=== PATIENT | male | born 1990 | race Caucasian/White ===

== ENCOUNTER 2020-05-19 00:25 | Inpatient (IN) | payer BC, MEDICAID ==
[~2020-05-19] VITALS: Ht 190.5 cm; Wt 124.7 kg
[2020-05-19] VITALS (569 sets, daily range): BP systolic 108–153; BP diastolic 62–106; PULSE 114–139; TEMP 98.9–99.6; O2SAT 79–100
[~2020-05-19 00:25] MED LIST: NAPROSYN500 MG PO; NORCO 325 MG-51 TAB PO; PREDNISONE20 MG PO; ZANTAC 150MG T150 MG PO
[2020-05-19 01:18] LABS: HEMATOCRIT 47.8 % (42.0-52.0); HEMOGLOBIN 16.3 g/dl (13.5-18.0); MEAN CELL VOLUME 89 fl (80.0-100.0); MEAN CORPUSCULAR HEMOGLOBIN 30 pg (27.0-31.0); MEAN CORPUSCULAR HGB CONC 34 g/dl (33.0-37.0); MEAN PLATELET VOLUME 10.6 fl (7.4-10.4); RED BLOOD COUNT 5.39 M/mm3 (4.20-5.60); REDCELL DISTRIBUTION WIDTH-CV 14.1 % (11.5-14.5)
[2020-05-19 01:19] LABS: PLATELET COUNT 44 K/mm3 (130-400)
[2020-05-19 01:43] LABS: ALANINE AMINOTRANSFERASE 333 U/L (4-49); ALBUMIN 4.1 gm/dL (3.5-5.0); ALKALINE PHOSPHATASE 121 U/L (50-136); ANION GAP 27 mmol/L (7-16); AST,SGOT 727 U/L (15-37); BILIRUBIN,TOTAL 1.5 mg/dL (0.0-1.0); BLOOD UREA NITROGEN 6 mg/dL (9-20); CALCIUM 8.4 mg/dL (8.4-10.2); CARBON DIOXIDE 15 mmol/L (22-30); CHLORIDE 97 mmol/L (98-107); CREATININE, serum 0.69 (0.66-1.25); GLUCOSE 76 mg/dL (74-106); MAGNESIUM 1.9 mg/dL (1.6-2.3); POTASSIUM 3.6 mmol/L (3.4-5.0); SODIUM 139 mmol/L (137-145); TOTAL PROTEIN 7.2 gm/dL (6.4-8.2)
[2020-05-19 01:44] LABS: C-REACTIVE PROTEIN < 0.5 mg/dL (0.0-0.9)
[2020-05-19 02:01] LABS: COLLECTION METHOD CLEAN CATCH
[2020-05-19 02:10] LABS: MUCOUS Present /lpf; PH 5 (5-8); SQUAMOUS EPITHELIAL 0-2 /hpf; URINE APPEARANCE Clear; URINE BACTERIA None Seen /hpf; URINE BILIRUBIN Negative (NEGATIVE); URINE BLOOD 2+ (NEGATIVE); URINE COLOR Amber; URINE GLUCOSE Negative (NEGATIVE); URINE KETONE 2+ (NEGATIVE); URINE LEUKOCYTE ESTERASE Negative (NEGATIVE); URINE NITRATE Negative (NEGATIVE); URINE PROTEIN(semi-quant) 3+ (NEGATIVE); URINE RBC 0-2 /hpf; URINE UROBILINOGEN >=4.0 mg/dL (NEGATIVE)
[2020-05-19 02:12] LABS: BAND 22 % (0-10); EOSINOPHIL 1 % (0-4); LYMPHOCYTE 19 % (20.0-51.0); METAMYELOCYTE 2 % (0-0); NEUTROPHILS 52 % (42.0-75.2)
[2020-05-19 02:13] LABS: ANISOCYTOSIS 1+; PLATELET ESTIMATE DECREASED (NORMAL)
[2020-05-19 02:14] LABS: TEAR DROP CELLS 1+
[2020-05-19] MEDS ORDERED: LYRICA 100MG C100 M1 PO (02:39)
[2020-05-19] MEDS ORDERED: LIORESAL 1010 MG/TAB PO (02:40)
[2020-05-19 03:01] LABS: INR 0.9 (0.8-3.0); PROTHROMBIN TIME 10.3 SECONDS (9.7-12.8)
[2020-05-19 03:48] LABS: ALCOHOL(ethanol),MEDICAL 280 mg/dL; LIPASE 953 U/L (23-300); PHOSPHOROUS 3.4 mg/dL (2.5-4.5)
[2020-05-19 03:50] LABS: ACETAMINOPHEN < 10 ug/mL (10-30); SALICYLATE < 1.0 mg/dL
[2020-05-19 05:45] LABS: HEMOGLOBIN 15.2 g/dl (13.5-18.0); MEAN CELL VOLUME 89 fl (80.0-100.0); MEAN CORPUSCULAR HEMOGLOBIN 31 pg (27.0-31.0); MEAN CORPUSCULAR HGB CONC 35 g/dl (33.0-37.0); MEAN PLATELET VOLUME 10.7 fl (7.4-10.4); RED BLOOD COUNT 4.92 M/mm3 (4.20-5.60); REDCELL DISTRIBUTION WIDTH-CV 14.2 % (11.5-14.5)
[2020-05-19 05:55] LABS: TRICYCLIC ANTIDEPRESS URINE NEGATIVE
[2020-05-19 05:56] LABS: PLATELET COUNT 41 K/mm3 (130-400)
[2020-05-19 05:57] LABS: ALBUMIN 3.8 gm/dL (3.5-5.0); BILIRUBIN,TOTAL 1.5 mg/dL (0.0-1.0); CALCIUM 7.9 mg/dL (8.4-10.2); CREATININE, serum 0.73 (0.66-1.25); MAGNESIUM 1.7 mg/dL (1.6-2.3); POTASSIUM 3.6 mmol/L (3.4-5.0); TOTAL PROTEIN 6.7 gm/dL (6.4-8.2)
--- NOTE | 2020-05-19 06:29 | NUR ---
Critical value for platelets at 41 called to this nurse. Maria E Kaiser APRN notified. No new orders. 14 FR Huff catheter placed with 10ml balloon. Tolerated this well. [place] urine drains from catheter bag. 2mg IV ativan administered per alcohol detox protocol. Small wound noted to left ankle, appears to be stage 2. Potassium protocol initiated and infusing at this time. Escoriation noted to reanna-area. Patient became tearful with staff and stated he was thankful for everything we do. Will report off to day shift nurse.
[2020-05-19 07:03] LABS: BAND 11 % (0-10); BASOPHIL 1 % (0-2); LYMPHOCYTE 16 % (20.0-51.0); METAMYELOCYTE 1 % (0-0); NEUTROPHILS 65 % (42.0-75.2)
[2020-05-19 07:09] LABS: PLATELET ESTIMATE DECREASED (NORMAL)
[2020-05-19 08:08] LABS: CREATININE, serum 0.63 (0.66-1.25); POTASSIUM 3.4 mmol/L (3.4-5.0)
--- NOTE | 2020-05-19 14:56 | NUR ---
SW met with the patient to discuss discharge plan. The patient lives alone in [place]. He states that his , Kelley Dubon (ph#[phone]), left him two weeks ago; due to his alcoholism. He reports needing assistance with ADLs and utilizes a wheelchair. The patient's PCP is Dr. Mauricio Blanton and he receives his medications at [facility]. He reports no difficulties obtaining his meds. The patient does not have advanced directives completed. He states that he would still wants his to be his decision maker. The patient's , Kelley, then arrived to the hospital. SW's met with the patient and Kelley. SW confirmed the above information with Kelley and discussed a DPOA-HC. The patient reports that he would like to complete a DPOA-HC and designate Kelley. Kelley was agreeable with being the patient's DPOA-HC. RUFINA and Cynthia ALMARAZ, witnessed the patient's signature. The patient was provided with the original and some copies. RUFINA placed a copy in the the patient's chart. RUFINA then discussed discharge plan. Kelley reports that she will be returning back to her home in [place] and cannot stay with the patient. She would like for the patient to receive some alcohol treatment. SW discussed outpatient/inpatient alcohol treatment. The patient reports that she is not sure if he is interested in treatment at this time. PT/OT have been ordered. SW to continue to follow. RUFINA made an APS report, due to concerns. Intake ID#[id number]
--- NOTE | 2020-05-19 19:15 | NUR ---
Bedside report received from BRANDY Mendiola.
[2020-05-19 19:46] LABS: CALCIUM 8.4 mg/dL (8.4-10.2); CREATININE, serum 0.65 (0.66-1.25)
--- NOTE | 2020-05-19 20:30 | NUR ---
Patient resting at this time, awakens to name. He is alert and oriented. No complaints of pain. States he is feeling much better than he was in the morning. Assessment complete. See shift assessment for details. He has no current needs at this time. He remains tachycardic and hypertensive. Will provide medication per [facility] protocol. Will continue to monitor. Call light within reach
[2020-05-20] VITALS (232 sets, daily range): BP systolic 110–152; BP diastolic 75–116; PULSE 117–137; TEMP 98.4–99.9; O2SAT 70–100
--- NOTE | 2020-05-20 05:41 | NUR ---
Patient has done well through the night. Patient at one point this morning asked to sit at the side of the bed, assisted with this. Patient laid back in bed asleep now. No current needs, will continue to monitor and score per CIWA
--- NOTE | 2020-05-20 07:09 | NUR ---
Bedside report given to BRANDY Varela
[2020-05-20 07:53] LABS: EOS # 0.1 (0.0-0.7); EOS % 2.9 % (0-4.0); GRAN # 2.3 (1.4-6.5); GRAN % 74.2 % (42.2-75.2); HEMATOCRIT 45.2 % (42.0-52.0); HEMOGLOBIN 15.4 g/dl (13.5-18.0); LYMPH # 0.4 (1.2-3.4); LYMPH % 13.9 % (20.0-51.0); MEAN CELL VOLUME 90 fl (80.0-100.0); MEAN CORPUSCULAR HEMOGLOBIN 31 pg (27.0-31.0); MEAN CORPUSCULAR HGB CONC 34 g/dl (33.0-37.0); MEAN PLATELET VOLUME 9.8 fl (7.4-10.4); MONO # 0.2 (0.1-0.6); MONO % 7.4 % (1.7-9.3); REDCELL DISTRIBUTION WIDTH-CV 14.2 % (11.5-14.5)
[2020-05-20 08:08] LABS: ALBUMIN 3.6 gm/dL (3.5-5.0); BILIRUBIN,TOTAL 1.8 mg/dL (0.0-1.0); CALCIUM 8.9 mg/dL (8.4-10.2); CREATININE, serum 0.7 (0.66-1.25); MAGNESIUM 1.9 mg/dL (1.6-2.3); POTASSIUM 3.2 mmol/L (3.4-5.0); TOTAL PROTEIN 6.7 gm/dL (6.4-8.2)
[2020-05-20 08:22] LABS: PLATELET COUNT 29 K/mm3 (130-400)
--- NOTE | 2020-05-20 09:35 | NUR ---
Report phoned to BRANDY Guaman at this time
--- NOTE | 2020-05-20 10:09 | NUR ---
The patient is to transfer to the medical floor today. Awaiting PT/OT fátima. RUFINA to continue to follow.
--- NOTE | 2020-05-20 10:30 | NUR ---
Pt arrives to medical unit rm [id number] from ICU via bed, awake, drowsy, oriented x 3. Pt denies pain at this time, requesting munchies like crackers and juice. IVF's infusing per orders, no s/s of complications. No further needs reported. Call light in reach.
--- NOTE | 2020-05-20 15:43 | NUR ---
Dietary Assistant followed up with patient on PT/OT recommendation for post acute rehab. Patient would like referrals sent to [facility], [facility] and [facility]. SW contacted Audrey [facility] Director and BRANDY Mojica-CM at [place] to give referrals. RUFINA will continue to follow.
--- NOTE | 2020-05-20 19:00 | NUR ---
Report with BRANDY Maloney. Pt sitting up in bed finishing dinner, denies needs at this time. Occasional c/o pain in left foot, otherwise uneventful shift. Call light in reach.
[2020-05-21] VITALS (10 sets, daily range): BP systolic 115–133; BP diastolic 71–86; PULSE 98–124; TEMP 97.4–99.1
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
--- NOTE | 2020-05-21 05:32 | NUR ---
IV WAS REPLACED IN HIS LEFT WRIST TO HIS LEFT HAND BECAUSE IT WAS PULLED OUT. IV IN THE LEFT AC WAS REDRESSED BECAUSE OF DRAINAGE. IV FLUIDS ARE NOW INFUSING IN THE LEFT HAND IV.
--- NOTE | 2020-05-21 08:00 | NUR ---
Assessment complete. Pt resting in bed, A&O x 3, denies pain at this time. IVF's infusing per orders through left hand site without s/s of complications. Saline lock IV to left AC without s/s of complications. No further needs reported. Call light in reach.
[2020-05-21 08:08] LABS: INR 0.9 (0.8-3.0); PROTHROMBIN TIME 10.5 SECONDS (9.7-12.8)
[2020-05-21 08:10] LABS: BASO % 0.9 % (0.0-2.0); EOS # 0.1 (0.0-0.7); EOS % 4.5 % (0-4.0); GRAN # 1.4 (1.4-6.5); GRAN % 60.8 % (42.2-75.2); HEMATOCRIT 38.6 % (42.0-52.0); LYMPH # 0.6 (1.2-3.4); LYMPH % 26.3 % (20.0-51.0); MEAN CELL VOLUME 90 fl (80.0-100.0); MEAN CORPUSCULAR HGB CONC 34 g/dl (33.0-37.0); MEAN PLATELET VOLUME 12.2 fl (7.4-10.4); MONO # 0.2 (0.1-0.6); MONO % 7.1 % (1.7-9.3); REDCELL DISTRIBUTION WIDTH-CV 14.1 % (11.5-14.5)
[2020-05-21 08:13] LABS: MEAN CORPUSCULAR HEMOGLOBIN 30 pg (27.0-31.0)
[2020-05-21 08:15] LABS: PLATELET COUNT 25 K/mm3 (130-400)
[2020-05-21 08:18] LABS: ALBUMIN 2.9 gm/dL (3.5-5.0); BILIRUBIN,TOTAL 1.2 mg/dL (0.0-1.0); CALCIUM 8.9 mg/dL (8.4-10.2); CREATININE, serum 0.57 (0.66-1.25); MAGNESIUM 1.7 mg/dL (1.6-2.3); POTASSIUM 3.7 mmol/L (3.4-5.0); TOTAL PROTEIN 5.7 gm/dL (6.4-8.2)
--- NOTE | 2020-05-21 15:38 | NUR ---
Woodworking Machinist spoke with Bridget at [facility] who advised the provider is still reviewing referral. SW followed up with Audrey, [facility] Director who advised they can accept pending insurance approval. SW to continue to follow.
--- NOTE | 2020-05-21 18:00 | NUR ---
Pt sitting up in chair, uneventful shift. Heart rate has improved, allowing detox score to improve as well. PT recommending [id number] lift for transfer in the near future. No further needs reported. Call light in reach.
--- NOTE | 2020-05-21 21:00 | NUR ---
Assessment complete. Up in chair. Watching television. Assisted back to bed per request, 2 assist and sit to stand lift. Denies needs at this time.
[2020-05-22] VITALS (7 sets, daily range): BP systolic 101–129; BP diastolic 68–84; PULSE 94–114; TEMP 97.7–98.8
--- NOTE | 2020-05-22 08:00 | NUR ---
PT IN BED, DENIES PAIN OR DISCOMFORT, REQUESTED NICORETTE GUM WHICH WAS PROVIDED WITH OTHER MEDICATIONS. ASSESSMENT PERFORMED. NO OTHER NEEDS AT THIS TIME. BROUGHT IN ORANGE JUICE REQUESTED.
[2020-05-22 08:25] LABS: BASO % 1.1 % (0.0-2.0); EOS # 0.1 (0.0-0.7); GRAN # 1.7 (1.4-6.5); GRAN % 66.3 % (42.2-75.2); HEMATOCRIT 38.9 % (42.0-52.0); HEMOGLOBIN 13.1 g/dl (13.5-18.0); LYMPH # 0.5 (1.2-3.4); LYMPH % 18.8 % (20.0-51.0); MEAN CELL VOLUME 92 fl (80.0-100.0); MEAN CORPUSCULAR HEMOGLOBIN 31 pg (27.0-31.0); MEAN CORPUSCULAR HGB CONC 34 g/dl (33.0-37.0); MEAN PLATELET VOLUME 12.4 fl (7.4-10.4); MONO # 0.2 (0.1-0.6); RED BLOOD COUNT 4.21 M/mm3 (4.20-5.60); REDCELL DISTRIBUTION WIDTH-CV 14.6 % (11.5-14.5)
[2020-05-22 08:26] LABS: PLATELET COUNT 40 K/mm3 (130-400)
[2020-05-22 08:56] LABS: ALBUMIN 2.9 gm/dL (3.5-5.0); BILIRUBIN,TOTAL 0.8 mg/dL (0.0-1.0); CALCIUM 8.8 mg/dL (8.4-10.2); CREATININE, serum 0.63 (0.66-1.25); MAGNESIUM 2.1 mg/dL (1.6-2.3); POTASSIUM 4.1 mmol/L (3.4-5.0); TOTAL PROTEIN 5.7 gm/dL (6.4-8.2)
[2020-05-22] MEDS ORDERED: MAG-OX 400400 MG/TAB PO (10:45)
[2020-05-22] MEDS ORDERED: PROTONIX 40MG T40 MG PO (10:45)
[2020-05-22] MEDS ORDERED: NICORETTE GUM2 MG BC (10:45)
[2020-05-22] MEDS ORDERED: MAG-AL LIQUID 230 ML PO (10:45)
[2020-05-22] MEDS ORDERED: THIAMINE 1100 MG/TAB PO (10:46)
[2020-05-22] MEDS ORDERED: FOLIC ACID 11 MG/TA1 PO (10:46)
[2020-05-22] MEDS ORDERED: DUO-KAPS1 CAP PO (10:46)
[2020-05-22] MEDS ORDERED: ROXICODONE 55 MG/TAB PO (10:47)
[2020-05-22] MEDS ORDERED: ZOFRAN 4MG T4 MG/TAB PO (10:47)
--- NOTE | 2020-05-22 11:19 | NUR ---
REPORT GIVEN TO BRANDY LAY ON IPR.
--- NOTE | 2020-05-22 12:46 | NUR ---
Trader notified by Audrey, [facility] Director that she received insurance approval and patient to discharge to [facility] today. No additional needs at this time.
--- NOTE | 2020-05-22 13:01 | NUR ---
PT TRANSFERRED TO [facility] WITH BELONGINGS
== END 2020-05-22 13:00 | DRG 896 ==
LOC: COL.ER 00:25 → MEDICAL 02:34 → ICU 02:34 → MEDICAL 05-20 13:00
PROVIDERS: Internal Medicine; Nurse Practitioner; Nurse Practitioner Family; ADMIT Family Medicine
DX: F10.239 Alcohol dependence with withdrawal, unspecified (principal); K85.90 Acute pancreatitis without necrosis or infection, unspecified; G72.1 Alcoholic myopathy; E87.2 Acidosis; R94.31 Abnormal electrocardiogram [ECG] [EKG]; R74.0 Nonspecific elevation of levels of transaminase and lactic acid dehydrogenase [LDH]; E87.6 Hypokalemia; D69.59 Other secondary thrombocytopenia
CPT/HCPCS: 99232-AI; 99233-AI; 99239; J2060; J2270; J2405; J2550; J3411; J3475; J3480; J7030; J7042

== ENCOUNTER 2020-05-22 11:50 | Inpatient (IN) | payer BC, MEDICAID ==
[~2020-05-22] VITALS: Ht 193 cm; Wt 130.4 kg
[~2020-05-22 11:50] MED LIST changes: +DUO-KAPS1 CAP PO; +FOLIC ACID 11 MG/TA1 PO; +LIORESAL 1010 MG/TAB PO; +LYRICA 100MG C100 M1 PO; +MAG-AL LIQUID 230 ML PO; +MAG-OX 400400 MG/TAB PO; +NICORETTE GUM2 MG BC; +PROTONIX 40MG T40 MG PO; +ROXICODONE 55 MG/TAB PO; +THIAMINE 1100 MG/TAB PO; +ZOFRAN 4MG T4 MG/TAB PO
--- NOTE | 2020-05-22 12:45 | NUR ---
PATIENT ARRIVED TO ROOM 334 FROM MEDICAL VIA BED. PATIENT ORIENTED AND SETTELED INTO THE ROOM. CALL LIGHT WITHIN REACH. INDWELLING CURRIE CATHETER TO DEPENDENT DRAINAGE WITH CLEAR YELLOW URINE PRESENT IN CURRIE BAG.
[2020-05-22 17:00] VITALS: BP 136/100; PULSE 96; TEMP 99.2
--- NOTE | 2020-05-22 17:40 | NUR ---
PATIENT REPORTS THAT HE IS FEELING ANXIOUS. BLOOD PRESSURE AND HEART RATE ELEVATED. PATIENT GIVEN ORN PO DOSE OF XANAX. WILL CONTINUE TO MONITOR.
[2020-05-22 17:50] VITALS: BP 137/93; PULSE 112; TEMP 98.6
[2020-05-22 17:59] VITALS: BP 136/100; PULSE 96; TEMP 99.2
--- NOTE | 2020-05-22 19:17 | NUR ---
Received report from BRANDY Bernal. Pt has his call light within reach.Pt has no concerns at this time.
--- NOTE | 2020-05-22 22:34 | NUR ---
Pt currently resting in bed. Pt is A&O x4. Pt stated that he doesn't need anything right now. Pt also stated that he has no pain at this time. Pt did state that this has been a horrible year. He enjoyed talking to me about some of the problems that he has had this year. Pt seems to be feeling better after talking. Pt has his call light within reach and his bed is in lowest position.
--- NOTE | 2020-05-23 03:20 | NUR ---
Pt is currently lying in bed. Pt stated that he was having pain in his left leg. Pt was given pain medication at this time. Pt has his call light within reach and his bed is in lowest position.
[2020-05-23 06:00] VITALS: BP 133/5; PULSE 91; TEMP 98.8
--- NOTE | 2020-05-23 07:23 | NUR ---
Reported off to BRANDY Gregory. Pt was helped to bedside commode this morning using the sit to stand lift. Pt had a medium bowel movement. Pt odonnell is still in place draining yellow clear urine. Pt is dressed for therapy this morning. He took his morning medicationa and requested his nicotine gum at this time. Pt is back and bed and has his call light within reach and his bed is in lowet position.
--- NOTE | 2020-05-23 08:00 | NUR ---
Patient in bed resting. Alert and oriented x 3. Assessment complete. Denies pain or further needs at this time.
--- NOTE | 2020-05-23 10:50 | NUR ---
Patient requesting pain medicine for pain 5/10 to right ankle. Medications given per orders.
--- NOTE | 2020-05-23 14:25 | NUR ---
Patient requests medicine for pain 5/10 to right ankle. Medications given per orders. States he is going to attempt to take a nap
--- NOTE | 2020-05-23 14:32 | NUR ---
The patient is new to [facility]. SW met with the patient to complete initial inake. The patient lives alone in [place] but is . The patient is wheelchair bound and reports independence with ADLs. The patient does not have a PCP but was interested in a list of [place] providers. List provided. The patient will receive medications from [facility] pharmacy. The patient does not have advanced directives in the EMR but states his Kelley Dubon is to make medical decisions, if needed. The patient states he has had good care. He has not questions or concerns at this time. RUFINA will continue to follow.
--- NOTE | 2020-05-23 16:16 | NUR ---
Patient sleeping in be.
[2020-05-23 17:00] VITALS: BP 102/57; PULSE 94; TEMP 98
--- NOTE | 2020-05-23 18:01 | NUR ---
Patient has done well throughout the day. Has been complaining of pain to LLE, states chronic but minimal relief with pain medication. Notified Nadira AMARAL. Increased dose of pain meds. Requests xanax instead. Medication given per orders. No further needs at this time. Will report off to service department manager.
--- NOTE | 2020-05-23 18:50 | NUR ---
Received report from Bri. Seen patient awake, lying in bed. With odonnell catheter draining clear, yellow urine. He states pain is still tolerable and doesn't need one right now. Call light within reach.
--- NOTE | 2020-05-23 19:50 | NUR ---
Patient complains of pain on his left leg. He says pain score is at around 4/10 but it is an intermittent pain and he can feel severe pain on and off. Oxycodone PRN given.
--- NOTE | 2020-05-23 21:40 | NUR ---
Catheter care done. Changed patient's briefs. He states pain is much better now.
--- NOTE | 2020-05-24 04:35 | NUR ---
Bed sound alarm went on. Seen patient sitting on the side of the bed. He states he just need to sit up. He says his tummy feels weird that he feels like he needs to have a bowel movement and reports he's not in pain right now with pain score of 2/10. He wanted to go to the bathroom to try to poop. Patient was assisted by PERRY Mitchell.
[2020-05-24 04:45] VITALS: BP 131/100; PULSE 80; TEMP 98.3
--- NOTE | 2020-05-24 07:08 | NUR ---
Endorsed patient to Dolores. Patient reports tolerable pain, pain score of 3/10. He had an uneventful night. He didn't have bowel movement during the shift.
[2020-05-24 16:57] VITALS: BP 108/72; PULSE 99; TEMP 98.6
--- NOTE | 2020-05-24 18:52 | NUR ---
PATIENT CATH CARE PROVIDED IN AM. PATIENT ABLE TO PIVOT TRANSFER WITH TWO ASSIST TO THE COMMODE AT THE BEDSIDE. PATIENT GIVEN XANAX NEEDED FOR ANXIETY DURING THE SHIFT. PATIENT REQUESTED A PAIN PILL DURING GROUP THERAPY. PATIENT WOULD LIKE TO HAVE HIS CURRIE CATHETER DISCONTINUED. PATIENT RESTING IN BED AT THIS TIME. SCD'S TO BLE. CALL LIGHT WITHIN REACH. BED ALARM ON. REPORT GIVEN TO BRANDY MOORE.
--- NOTE | 2020-05-24 19:24 | NUR ---
Received report from Dolores. Seen patient awake, lying in bed. He requested to put back his SCD on his legs. When asked about his pain, he said that he just got a pain reliever awhile ago and he's still waiting for it to take effect.
--- NOTE | 2020-05-25 05:25 | NUR ---
Assisted patient to bedside commode for bowel movement. Briefs and shorts were changed. Bed linens and blankets were replaced. Patient reports pain on his left leg with pain score of 5/10 but says it could shoot up to 8/10. [place] and Xanax given as per patient's request.
[2020-05-25 06:08] VITALS: BP 107/56; PULSE 86; TEMP 98.8
--- NOTE | 2020-05-25 07:05 | NUR ---
Endorsed patient to Vanessa. He states pain is starting to subside already. No other needs at this time.
--- NOTE | 2020-05-25 07:09 | NUR ---
resting in bed, bedside shift report received
--- NOTE | 2020-05-25 08:15 | NUR ---
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
--- NOTE | 2020-05-25 10:00 | NUR ---
c/o pain to legs and abdomen, medicated with roxicodone 10mg po, requesting ativan also at this time but informed it was too early, verbalizes understanding, will medicate when time appropriate
--- NOTE | 2020-05-25 11:17 | NUR ---
now medicated with ativan 0.5mg po per his request, states some relief from pain pills given earlier
--- NOTE | 2020-05-25 12:30 | NUR ---
had lunch and tolerated well, states some relief to pain since also having ativan
[2020-05-25 16:30] VITALS: BP 108/60; PULSE 92; TEMP 99.3
--- NOTE | 2020-05-25 16:30 | NUR ---
c/o pain beginning to increase, medicated with roxicodone 10mg po, odonnell intact and drainign throughout the day, moves about in bed independently
--- NOTE | 2020-05-25 18:40 | NUR ---
PATIENT RESTING IN BED DURING REPORT. REQUESTS PAIN MEDS WHEN NEXT AVAILABLE AND WOULD LIKE ORANGE JUICE WHEN NEXT AVAILABLE. CURRIE CATHETER DRAINING CLEAR YELLOW. BED ALARM ON.
--- NOTE | 2020-05-25 20:00 | NUR ---
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 REPORTS HAS LLE MUSCLE SPASMS AND PAIN INTERMITTENTLY.
--- NOTE | 2020-05-26 03:30 | NUR ---
PATIENT SLEEPING, DOES NOT AWAKEN WHEN DOOR TO ROOM IS OPENED BY STAFF WITH RESP OBSERVED NONLABORED AND EVEN. BED ALARM ON.
--- NOTE | 2020-05-26 06:00 | NUR ---
OBSERVED PATIENT STAND AT BEDSIDE, REFUSED TO USE PLATFORM WALKER D/T "IT'S EASIER THIS WAY" INDICATING STANDING SLIGHT BEND AT WAIST FOR PERICARE AFTER PASSING STOOL, OBSERVED PATIENT TRANSFERED SELF FROM STANDING AT BEDSIDE TO SITTING AND "SCOOTING" IN SITTING POSITION FROM BOTTOM OF BED UP TOWARDS HEAD OF BED WITH NO STAFF ASSISTANCE.
[2020-05-26 06:06] VITALS: BP 116/74; PULSE 98; TEMP 98.4
--- NOTE | 2020-05-26 07:00 | NUR ---
PATIENT RESTING IN BED DURING REPORT WITH BED ALARM ON.
[2020-05-26 07:48] LABS: HEMATOCRIT 39.2 % (42.0-52.0); MEAN CELL VOLUME 94 fl (80.0-100.0); MEAN CORPUSCULAR HEMOGLOBIN 31 pg (27.0-31.0); MEAN CORPUSCULAR HGB CONC 33 g/dl (33.0-37.0); MEAN PLATELET VOLUME 10.2 fl (7.4-10.4); PLATELET COUNT 166 K/mm3 (130-400); RED BLOOD COUNT 4.18 M/mm3 (4.20-5.60); REDCELL DISTRIBUTION WIDTH-CV 15.6 % (11.5-14.5)
[2020-05-26 07:52] LABS: ALBUMIN 3.6 gm/dL (3.5-5.0); BILIRUBIN,TOTAL 0.7 mg/dL (0.0-1.0); CALCIUM 8.8 mg/dL (8.4-10.2); CREATININE, serum 0.77 (0.66-1.25); MAGNESIUM 2.2 mg/dL (1.6-2.3); TOTAL PROTEIN 6.7 gm/dL (6.4-8.2)
[2020-05-26 09:35] LABS: BAND 1 % (0-10); EOSINOPHIL 2 % (0-4); LYMPHOCYTE 7 % (20.0-51.0); NEUTROPHILS 69 % (42.0-75.2); PLATELET ESTIMATE NORMAL (NORMAL)
--- NOTE | 2020-05-26 15:29 | NUR ---
Patient resting in bed at this time, call light in reach and bed alarm set. Patient reporting pain 5/10 at this time and given prn pain meds with good effect. Patient takes pills whole with water and independently. Patient denied nausea this shift. Patient was excited to meet a personal goal this afternoon with standing and was a little tearful to be able to accomplish this. He was given much needed positive feedback and was congratulated with a nice orange juice. He denies any questions at this time.
--- NOTE | 2020-05-26 15:31 | NUR ---
RUFINA met with the patient to follow up from the weekend. The patient states that Ramandeep the nurse was great. However, the Tuesday nurse did not empty his bag until 6:30pm. He states he saw it at 2pm and is was pretty full and he felt he could not drink anything because he did not want to get it too full. There are no other questions or concerns. RUFINA collaborated the above information with [facility] Director.
[2020-05-26 17:29] VITALS: BP 127/77; PULSE 84; TEMP 98.2
--- NOTE | 2020-05-26 17:38 | NUR ---
Catheter care provided for patient. This nurse observed some yellow drainage from the penis and some redness on skin in the scrotum and reanna area. Will discuss with Dr. Sanchez to see about an ointment to help with this.
--- NOTE | 2020-05-26 19:05 | NUR ---
CHANGE OF SHIFT REPORT RECEIVED FROM DAY SHIFT NURSEMARGARITO. PATIENT RESTING IN BED DURING REPORT WITH BED ALARM ON. CURRIE CATH IN PLACE, DRAINING WELL WITH YELLOW URINE.
--- NOTE | 2020-05-26 19:59 | NUR ---
Received a verbal order for a topical ointment per dr. moser to help patient with groin itching, redness, and discharge.
--- NOTE | 2020-05-26 20:50 | NUR ---
R MID FOREARM AMPUTATION HX, MOVES BLE WELL WITH NO WEAKNESS USING PLATFORM WALKER. DENIES NUMBNESS/TINGLING TO BUE AND REPORTS HAS SLIGHT CHRONIC TINGLING TO BLE FROM BACK PROBLEMS.
--- NOTE | 2020-05-27 02:01 | NUR ---
OBSERVED URINE OUTPUT WITH CONSTANT DRIBBLE OF MED YELLOW URINE. PATIENT NEEDING PARTIAL ASST WITH INCONTINENT SKIN CARE. SEE eMAR FOR PAIN MED GIVEN, ALSO GIVEN NICORETTE GUM DURING ACTIVITY WHEN UP TO BSC AND BACK TO BED.
[2020-05-27 05:28] VITALS: BP 106/62; PULSE 71; TEMP 97.7
--- NOTE | 2020-05-27 07:10 | NUR ---
PATIENT RESTING IN BED DURING CHANGE OF SHIFT REPORT RECEIVED FROM DAY SHIFT NURSEMARGARITO. BED ALARM ON.
--- NOTE | 2020-05-27 10:23 | NUR ---
Patient tolerating diet well this morning. Patient continues to have leg pain that is sharp at times. He continues to work hard with his therapies and is staying very confident. Patient denies any questions this morning. He is independent with his meals, set up with getting his shirt on. Patient had one BM this morning per patient. Will continue to monitor.
--- NOTE | 2020-05-27 11:18 | NUR ---
Dr. Cleveland called this morning to report that she received the consult order, but would not be able to see the patient until tomorrow 05/28. This nurse voiced understanding.
--- NOTE | 2020-05-27 11:53 | NUR ---
Faxed paper work for referral to Behavioral Health.
--- NOTE | 2020-05-27 14:29 | NUR ---
Screen Printing Machine Operator Helper met with patient to schedule family meeting for 05/28/20 @ [id number]. Patient states he will contact his , Kelley about meeting. Patient does not want to invite any other to the meeting at this time. SW will continue to follow.
[2020-05-27 17:06] VITALS: BP 120/72; PULSE 67; TEMP 98.6
--- NOTE | 2020-05-27 18:55 | NUR ---
PATIENT RESTING IN BED DURING CHANGE OF SHIFT REPORT RECEIVED FROM DAY SHIFT NURSEMARGARITO. BED ALARM ON.
--- NOTE | 2020-05-27 19:06 | NUR ---
Patient reported that he was able to use the urinal standing up for the first time today and that it went ok. He is currently resting in bed, call light in reach and bed alarm is set. Denies questions. Reported off to Nya.
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
--- NOTE | 2020-05-28 00:44 | NUR ---
PATIENT SLEEPING, DOES NOT AWAKEN WHEN DOOR TO ROOM IS OPENED BY STAFF. BREATHING NONLABORED AND EVEN.
[2020-05-28 06:31] VITALS: BP 111/80; PULSE 74; TEMP 98.6
--- NOTE | 2020-05-28 07:45 | NUR ---
PATIENT RESTING IN BED DURING CHANGE OF SHIFT REPORT GIVEN TO DAY SHIFT NURSEROSANNE.
--- NOTE | 2020-05-28 16:00 | NUR ---
PATIENT IS TEARFUL UPON ENTRY TO THE ROOM AFTER HE SAW THE PSYCHIATRIST TODAY. PATIENT IS UPSET ABOUT RECOMMENDING THAT THE PATIENT BEGIN TO TAPER OFF OF THE XANAX IN PREPARATION FOR DISCHARGE.
--- NOTE | 2020-05-28 16:43 | NUR ---
Education Nurse participated in family meeting with patient which included Audrey, IPR Director and PT/OT. Patient's , Kelley participated by video call. Audrey opened the meeting by explaining it's purpose then PT/OT reviewed patient's progress. Patient is feeling proud of the progress he has made with PT. SW followed up with the patient after the meeting to review and provide team conference notes. Discharge date is set for 06/04/20. Patient is tearful and states he feels frustrated after his consult with Psychiatry. Patient states it is recommended he stop taking Xanax, but he feels this is the only thing that makes him feel better. SW discussed mental health and drug/alcohol resources with patient. SW provided resource packet which included local AA meetings. Patient states he intends to stop drinking but will not attend AA meetings. Patient would like to get set up with a therapist but does not want to go to [facility]. SW spoke with patient about [facility], which can provide individual therapy along with outpatient drug/alcohol services. Patient is open to this but wants time to think about it. Patient is also interested in setting up primary care but doesn't know where to start in choosing a primary care provider. SW will assist with this and will continue to follow.
[2020-05-28 17:18] VITALS: BP 122/76; PULSE 78; TEMP 98.3
--- NOTE | 2020-05-28 19:33 | NUR ---
PATIENT RESTING IN BED AT SHIFT CHANGE. PATIENT REQUESTING TO HAVE HELP TRANSFERRING TO THE WHEELCHAIR SO HE CAN ORGANIZE HIS BELONGINGS. PATIENT ASSISTED TO WHEELCHAIR FROM THE BED WITH MINIMAL ASSIST PIVOT TRANSFER. REPORT GIVEN TO BRANDY MOORE.
--- NOTE | 2020-05-28 20:20 | NUR ---
Received report from Dolores. Assisted patient in transferring from bed to wheelchair. He reports pain on left lower extremity at 6/10. Oxycodone given. He requested for Xanax as well. He states he has a roller coaster kind of day today and he just had a headache from crying awhile ago. Assisted patient on changing his briefs. Call light within reach.
[2020-05-29 05:34] VITALS: BP 116/75; PULSE 75; TEMP 98.1
--- NOTE | 2020-05-29 06:00 | NUR ---
Asssited patient in the bedside commode and stayed there for few minutes for bowel movement. He asked for his soda dispenser meds. He said his pain right now is at 2/10.
[2020-05-29 16:34] VITALS: BP 104/63; PULSE 75; TEMP 98.7
--- NOTE | 2020-05-29 19:00 | NUR ---
PATIENT REQUESTING HELP TO TRANSFER TO THE WHEELCHAIR TO ATTEND TO EVENING ADL'S. PATIENT TRANSFERRED WITH MINIMAL ASSIST. PATIENT PROVIDED WITH PRN ANXIETY AND PAIN MEDICATIONS THROUGHOUT THE SHIFT. REPORT GIVEN TO BRANDY MAYO.
[2020-05-30 05:32] VITALS: BP 116/75; PULSE 65; TEMP 98.6
--- NOTE | 2020-05-30 11:25 | NUR ---
Patient working with therapy this morning, but reporting that he is feeling very angry this morning mood ramirez. He said he will work through it, but that it is just making him discouraged. This nurse spoke with him for a short time and will continue to monitor him.
--- NOTE | 2020-05-30 13:09 | NUR ---
Patient reporting that he is in a better mood after eating his lunch. It was a good salad. Patient ate 100% of lunch and is currently resting in bed call light in reach and denies any questions.
--- NOTE | 2020-05-30 15:24 | NUR ---
Receiving Worker met with patient to follow up before the weekend. Patient reports he is doing okay and that "he's alive". SW discussed outpatient PT with patient who reports he will likely want to have an appointment set up wherever is closest to his home, but he's not sure on a final decision yet. At this time, patient does not want to set up outpatient mental health or alcohol/drug therapy at this time. SW spoke with patient about recommendation for tub transfer bench. Patient states he already has a shower chair but that his sister will be in town next week and they can go purchase one then. SW will continue to follow.
[2020-05-30 17:14] VITALS: BP 113/74; PULSE 78; TEMP 99.3
[2020-05-30 17:27] LABS: COLLECTION METHOD CATHETER
[2020-05-30 17:33] LABS: PH 7 (5-8); SQUAMOUS EPITHELIAL 0-2 /hpf; URINE APPEARANCE Clear; URINE BACTERIA None Seen /hpf; URINE BILIRUBIN Negative (NEGATIVE); URINE BLOOD Negative (NEGATIVE); URINE COLOR Yellow; URINE GLUCOSE Negative (NEGATIVE); URINE KETONE Negative (NEGATIVE); URINE LEUKOCYTE ESTERASE Negative (NEGATIVE); URINE NITRATE Negative (NEGATIVE); URINE PROTEIN(semi-quant) Negative (NEGATIVE); URINE RBC 0-2 /hpf; URINE UROBILINOGEN Negative (NEGATIVE)
--- NOTE | 2020-05-30 21:00 | NUR ---
PT RESTING IN BED. VIEWING COMPUTER. SEE MAR FOR PAIN MEDICATIONS GIVEN. C/O BRITTNEY CHRONIC LEG PAIN LEVEL 5/10. PT RELATED HE DID NOT WANT HYDROXYZINE ANY MORE. IT MADE HIM FEEL AGITATED AND WEAK. PT ABLE TO TRANSFER SELF WITH PLATFORM WALKER TO BSC INDEPENDENTLY W/SBA. PROVIDED HIS OWN HYGEINE CARES. BRUSHED HIS OWN TEETH AT SINK IN WC. RETURNS TO BED. CALL LIGHT IN REACH. BED ALARM SET.
[2020-05-31 05:17] VITALS: BP 109/72; PULSE 71; TEMP 97.8
--- NOTE | 2020-05-31 05:18 | NUR ---
PT HAS SLEPT WELL THIS SHIFT.
[2020-05-31 17:21] VITALS: BP 127/82; PULSE 88
--- NOTE | 2020-05-31 18:00 | NUR ---
Motivated to gain strength and did exercises today. Up in wheelchair. Roxicodone prn for leg pain with activity.
[2020-05-31 20:00] VITALS: TEMP 97.8
--- NOTE | 2020-05-31 20:30 | NUR ---
PT CALM AND COOPERATIVE. SITTING UP ON SIDE OF BED TO VOID PER URINAL. DENIES DIFFICULTIES WITH ANY S/S. PT ABLE TO MANAGE TOILETING HYGEINE. CHANGES BRIEFS. HX OF URINARY DRIBBLING. SEE MAR FOR PAIN MEDICATION GIVEN FOR BILAT LEG PAIN. TAKES NICORETTE GUM FREQUENTLY. NO FURTHER NEEDS AT THIS TIME.
[2020-06-01 04:26] VITALS: BP 119/80; PULSE 63; TEMP 97.5
--- NOTE | 2020-06-01 04:35 | NUR ---
SEE MAR FOR ROXICODE AND NICORETTE GIVEN. PT INCONTINENT IN BRIEFS AND CHUX, PT ABLE TO MANAGE OWN TOILETING TASKS. GOOD SAFETY JUDGEMENT.
--- NOTE | 2020-06-01 07:43 | NUR ---
PATIENT ASSESSMENT COMPLETED. PRN GUM GIVEN AT THIS TIME. HAS FINISHED BREAKFAST. HE IS USING HIS MESSAGER. ASSISTED TO THE RESTROOM
--- NOTE | 2020-06-01 10:00 | NUR ---
PATIENT RESTING IN BED. NICOTINE GUM PROVIDED PER HIS REQUEST. PRN ROXICODONE 10MG WAS PROVIDED ALSO.
[2020-06-01 18:09] VITALS: BP 131/85; PULSE 84; TEMP 98.3
[2020-06-02 05:11] VITALS: BP 111/66; PULSE 70; TEMP 98.3
--- NOTE | 2020-06-02 05:20 | NUR ---
Patient sitting upright in bed at this time watching TV. Patient is alert and oriented, answers questions appropriately. Patient has requested PRN pain medication and nicotene gum regularly throughout the [facility], reports that he only slept for a couple of hours. Patient is a SBA to stand up at bedside and use the urinal, supervision only, no physical assistance required. Patient was incontinent of urine a few times overnight, patient was able to verbaliZe needs for supplies and provide his own incontinent care with set up and supervision only. Hernestot denies needs at this time, call light within reach, bed alarm on.
--- NOTE | 2020-06-02 07:30 | NUR ---
Assessment completed, alert/oriented, vital signs stable, pain is controlled, patient reports that he continues to not sleep well at night/ denies other issues during the night, he is sitting up in bed eating breakfast and denies other needs at this time, I have helped him to the bathroom and he is doing very well with ambulation/mobility
--- NOTE | 2020-06-02 16:18 | NUR ---
Knit Goods Press Hand met with patient to follow up from the weekend. SW advised patient that she followed up with Hayden Tai, Oxyacetylene Torch Operator who reports he spoke with the therapy team and they recommended either Dr. Sami Jerome or Dr. Tyrel Armstrong for spinal cord injuries. SW provided this update to patient who advised he would research both and make a decision tomorrow. SW to call both providers to inquire if they are taking new patients. Patient states he is working on setting up an appointment with [facility]. Patient also would like appointment set up for outpatient PT with [facility]. SW will follow up to make appointment. Patient also confirmed he has a platform walker at home. SW to continue to follow.
[2020-06-02 18:55] VITALS: BP 129/74; PULSE 105; TEMP 98.2
--- NOTE | 2020-06-02 20:10 | NUR ---
At time of assessment, patient is awake in bed watching TV. He ambulates independently to bathroom. He requests Nicorette gum at this time. Heart sounds are normal, lungs clear, no edema present. No new concerns at this time.
--- NOTE | 2020-06-03 05:14 | NUR ---
Patient has been awake for most of the night, requesting nicorette gum every hour. 10 mg oxycodone has been administered twice for pain over night. He is currently sleeping.
[2020-06-03 06:14] VITALS: BP 112/70; PULSE 67; TEMP 97.6
--- NOTE | 2020-06-03 07:34 | NUR ---
Patient not getting much sleep at night. Reports that the new medicine causing insomnia and agitation. Will not be taking this when at home. Patient reports pain of 4/10 and was given prn pain meds this morning. Will continue to monitor.
--- NOTE | 2020-06-03 13:29 | NUR ---
Spoke with patient this morning and he requested a stronger dose of nicoret gum. See new order per Nadira. Discussed if patient had chosen a Primary Care Physician yet, but he reported that SW is currently working with him on this. He was hoping to talk with SW sometime today. RUFINA was notified of this and she will get with patient later this afternoon.
--- NOTE | 2020-06-03 16:44 | NUR ---
Drapery Examiner followed up with patient who advised he is working on getting an appointment set up with Chris Monique. Patient would like his outpatient therapy to be set up at [facility]. RUFINA scheduled appointment for 06/11/20 @ 1300. Patient would also like to have primary care set up at [facility] as it is closest to his home. RUFINA scheduled a hospital follow up with [facility] Nurse Practitioner on 06/12/20 @ 1300. RUFINA scheduled a new patient appointment with Dr. Peguero on 09/09/20 @ 1400. RUFINA provided appointment times to [facility] and to patient. RUFINA scheduled transportation to the 06/12/20 appointment with [employer] [facility]. RUFINA provided flower buncher or picker time and will call phone number (#[phone]) to patient. Confirmation number [phone]. RUFINA will continue to follow.
--- NOTE | 2020-06-03 17:35 | NUR ---
SW set up follow up appointments for patient upon discharge. See discharge under appointments. Patient attended all therapies today. Tolerated diet well. Reported not getting much sleep the last few nights and that he was angry and grumpy this morning due to the side effects of the med Lamictal. Patient said that he would refuse it if he gets it again. It is causing agitation and insomnia. After morning therapies patient was more relaxed, but was needing nicorette gum Q 1 hour most of the day. Patient was independent with getting his clothes on and off. He is able to open all his containters himself and able to eat independently. Patient is Mod I in his room with a walker. Patient denies questions at this time.
[2020-06-03 18:21] VITALS: BP 119/75; PULSE 85; TEMP 99.4
--- NOTE | 2020-06-03 20:00 | NUR ---
PT RESTING IN BED. ON HIS COMPUTER. ANXIOUS AND AGITATED. USING FOUL LANGUAGE. ALLOWED PT TO VENT EMOTIONS. PT RELATED HAD A BAD DAY. VERY NEGATIVE THINKING. REINFORCED POSITIVE ATTITUDE. REQUESTED PT TO NOT USE FOUL LANGUAGE. PT RELATED "I CAN SAY ANYTHING I WANT." REINFORCED BOUNDRIES. PT APOLOGIZED AND VERBALIZED UNDERSTANDING. PT CALMER NOW.
--- NOTE | 2020-06-03 21:00 | NUR ---
PT REFUSED LIMICTAL. RELATES IT IS MAKING HIM ANXIOUS AND AGITATED.
--- NOTE | 2020-06-04 02:13 | NUR ---
PT AWAKE WANTS ROXICODONE WHEN TIMED. SEE MAR FOR NICORETTE GUM GIVEN.
[2020-06-04 05:41] VITALS: BP 136/85; PULSE 68; TEMP 97.8
--- NOTE | 2020-06-04 05:48 | NUR ---
PT MOANING. C/O LLE PAIN. SEE JAN. CPAP W/ O2 BLED IN CONTINUES. NO OTHER NEEDS AT THIS TIME.
[2020-06-04] MEDS ORDERED: LAMICTAL 25MG T25 MG PO ×2 (08:18)
[2020-06-04] MEDS ORDERED: ATARAX 25MG25 MG/TAB PO ×2 (08:18)
[2020-06-04] MEDS ORDERED: TYLENOL 325MG325 MG PO (08:18)
[2020-06-04] MEDS ORDERED: XANAX .25M0.25 MG/TA PO (08:19)
[2020-06-04] MEDS ORDERED: TRIAM OI 0.1 454 TP (08:19)
[2020-06-04] MEDS ORDERED: MELATIN 3 MG-11 TAB PO (08:19)
[2020-06-04] MEDS ORDERED: ROXICODONE 55 MG/TAB PO (08:22)
--- NOTE | 2020-06-04 09:27 | NUR ---
Patient was doing his own grooming this morning in his wheelchair. Patient reports pain 4/10 this morning and was given prn pain meds earlier this morning. Discussed discharge information with patient. He reports that his friend is ready to leave when ever he is.
--- NOTE | 2020-06-04 11:34 | NUR ---
Distribution Operation Supervisor met with patient to follow up before discharge. Patient states he is ready to get home. Patient advised he has been in contact with [facility] and they should be able to get him in early June. Patient reports he is to work on an online form they are requiring from him. SW reviewed follow up appointments with patient again. SW then faxed discharge orders to [facility]. No additional needs at this time.
--- NOTE | 2020-06-04 11:38 | NUR ---
Style Advisor prayed with patient. Offered support once the patient leaves the hospital. No other needs right now.
--- NOTE | 2020-06-04 11:46 | NUR ---
Patient Health Summary, Discharge Summary, and Home Meds printed and reviewed with patient. Stressed importance of follow up appointments. Called prescriptions for Baclofen, Lyrica, Folic Acid, Thiamin, Magnesium Oxide to pharmacy of choice. Belongings gathered by RN/Allyn and patient including computer with rn cardiac; wedding band; cell phone with rn cardiac; pink back pack; misc. clothing; dirty clothes from hamper and other misc. items. Patient transported via wheelchair by RN/Allyn and seatbelted for ride home with patient's friend. Patient denied questions. Supervisor General stopped by and visited patient prior to leaving. This nurse assisted patient with completing paperwork for [facility] so that he can be seen in June. Appointment set up with Dr. Guillen with [facility], [address] [place] [address] [id number] (G)[place], [place] [id number] - 06/30/20 at 1:30 PM. Patient will be seeing PCP nurse practitioner on 06/12/20 and then see PCP Dr. Leidy Peguero on 09/09/20 at 2:00 PM.
--- NOTE | 2020-06-04 16:56 | NUR ---
Faxed discharge papers to Dr. Peguero's office [phone].
== END 2020-06-04 11:35 | disposition home or self-care (01) | DRG 947 ==
PROVIDERS: Physician Assistant; ADMIT Internal Medicine
DX: R53.81 Other malaise (principal); K85.90 Acute pancreatitis without necrosis or infection, unspecified; G72.1 Alcoholic myopathy; F10.239 Alcohol dependence with withdrawal, unspecified; E87.2 Acidosis; E87.6 Hypokalemia; R00.0 Tachycardia, unspecified; D69.6 Thrombocytopenia, unspecified; D72.819 Decreased white blood cell count, unspecified; G89.29 Other chronic pain; G47.00 Insomnia, unspecified; F32.9 Major depressive disorder, single episode, unspecified; F41.9 Anxiety disorder, unspecified; R74.0 Nonspecific elevation of levels of transaminase and lactic acid dehydrogenase [LDH]; F17.210 Nicotine dependence, cigarettes, uncomplicated; Z79.891 Long term (current) use of opiate analgesic; Z89.211 Acquired absence of right upper limb below elbow; Z99.3 Dependence on wheelchair; Z87.828 Personal history of other (healed) physical injury and trauma
CPT/HCPCS: 99222-AI; 99231-AI; 99232-AI; 99233-AI; 99239; J1650

== ENCOUNTER 2020-07-10 15:37 | Outpatient (RCR) | payer BC ==
[~2020-07-10 15:37] MED LIST changes: +ATARAX 25MG25 MG/TAB PO; +LAMICTAL 25MG T25 MG PO; +MELATIN 3 MG-11 TAB PO; +TRIAM OI 0.1 454 TP; +TYLENOL 325MG325 MG PO; +XANAX .25M0.25 MG/TA PO
== END 2020-10-08 | disposition still patient (30) ==
LOC: MKS.ESL.OT
DX: S24.153A Other incomplete lesion at T7-T10 level of thoracic spinal cord, initial encounter (principal)

== ENCOUNTER 2020-09-01 15:30 | Outpatient (RCR) | payer BC | END 2020-09-09 | disposition home or self-care (01) | LOC: MKS.ESL.PT | DX: G72.1 Alcoholic myopathy (principal) ==

== ENCOUNTER 2020-11-10 14:45 | Outpatient (RCR) | payer BC | END 2020-11-24 | disposition home or self-care (01) | LOC: MKS.ESL.PT | DX: G72.1 Alcoholic myopathy (principal) ==

== ENCOUNTER 2020-12-01 10:53 | Outpatient (RCR) | payer BC | END 2021-03-01 | disposition home or self-care (01) | LOC: MKS.ESL.OT | DX: R20.8 Other disturbances of skin sensation (principal) ==

== ENCOUNTER 2021-01-26 11:15 | Outpatient (RCR) | payer BC | END 2021-02-24 | disposition home or self-care (01) | LOC: MKS.ESL.PT | DX: G72.1 Alcoholic myopathy (principal) ==

== ENCOUNTER 2021-01-29 11:15 | Outpatient (RCR) | payer BC | END 2021-01-29 11:17 | disposition home or self-care (01) | LOC: MKS.ESL.OT 11:15 | DX: Z89.211 Acquired absence of right upper limb below elbow (principal) ==

== ENCOUNTER 2021-03-22 17:38 | Emergency (ER) | payer BC ==
[~2021-03-22] VITALS: Ht 190.5 cm; Wt 145.5 kg
[2021-03-22 19:30] VITALS: BP 130/93; PULSE 59; TEMP 98.2
== END 2021-03-22 19:30 | disposition home or self-care (01) ==
LOC: COL.ER 17:38
DX: S93.401A Sprain of unspecified ligament of right ankle, initial encounter (principal); S80.01XA Contusion of right knee, initial encounter; F17.210 Nicotine dependence, cigarettes, uncomplicated; W05.0XXA Fall from non-moving wheelchair, initial encounter

== ENCOUNTER 2021-05-08 07:22 | Emergency (ER) | payer BC, MEDICAID ==
[~2021-05-08] VITALS: Ht 190.5 cm; Wt 143.2 kg
[2021-05-08 07:31] VITALS: TEMP 98.6
[2021-05-08 07:59] LABS: BASO % 0.5 % (0.0-2.0); EOS % 0.4 % (0-4.0); GRAN # 4.1 (1.4-6.5); GRAN % 74.2 % (42.2-75.2); HEMATOCRIT 49.2 % (42.0-52.0); HEMOGLOBIN 17.2 g/dl (13.5-18.0); LYMPH # 0.8 (1.2-3.4); LYMPH % 15.2 % (20.0-51.0); MEAN CELL VOLUME 89 fl (80.0-100.0); MEAN CORPUSCULAR HEMOGLOBIN 31 pg (27.0-31.0); MEAN CORPUSCULAR HGB CONC 35 g/dl (33.0-37.0); MEAN PLATELET VOLUME 9.6 fl (7.4-10.4); MONO # 0.5 (0.1-0.6); MONO % 9.5 % (1.7-9.3); PLATELET COUNT 171 K/mm3 (130-400); RED BLOOD COUNT 5.51 M/mm3 (4.20-5.60); REDCELL DISTRIBUTION WIDTH-CV 13.1 % (11.5-14.5)
[2021-05-08 08:07] LABS: ALCOHOL(ethanol),MEDICAL 94 mg/dL; LIPASE 75 U/L (23-300)
[2021-05-08] MEDS ORDERED: DESYREL 100MG100 MG PO (10:15)
[2021-05-08 10:44] LABS: ALBUMIN 4.5 gm/dL (3.5-5.0); BILIRUBIN,TOTAL 0.6 mg/dL (0.0-1.0); CALCIUM 9.6 mg/dL (8.4-10.2); CREATININE, serum 0.86 (0.66-1.25); POTASSIUM 3.5 mmol/L (3.4-5.0); TOTAL PROTEIN 7.9 gm/dL (6.4-8.2)
[2021-05-08] MEDS ORDERED: ZOFRAN ODT4 MG PO (11:07)
[2021-05-08] MEDS ORDERED: PROTONIX 40MG T40 MG PO (11:07)
[2021-05-08 12:13] VITALS: BP 135/97; PULSE 120
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
== END 2021-05-08 12:25 | disposition home or self-care (01) ==
LOC: COL.ER 07:22
PROVIDERS: Personal Emergency Response Attendant
DX: F10.239 Alcohol dependence with withdrawal, unspecified (principal); F17.210 Nicotine dependence, cigarettes, uncomplicated; Y90.4 Blood alcohol level of 80-99 mg/100 ml
CPT/HCPCS: C9113; J2060; J2405; J7030